=== PATIENT | female | born 1985 | race Hispanic/Latino ===

== ENCOUNTER 2022-01-29 08:54 | Emergency (ER) | payer SELFPAY ==
[~2022-01-29] VITALS: Ht 157.5 cm; Wt 68.9 kg
[2022-01-29] MEDS ORDERED: MAGNESIUM/ALUMINUM/SIMETHICONE 30 ML UDC PO ONE (09:15)
[2022-01-29] MEDS ORDERED: BELLADONNA ALK/PHENOBARBITAL 5 ML UDC PO ONE (09:15)
[2022-01-29] MEDS ORDERED: LIDOCAINE VISC 2% SOLN 15 ML UDC PO ONE (09:15)
[2022-01-29] MEDS ORDERED: ONDANSETRON HCL 4 MG ORAL DISINTEGRATING TAB PO ONE (09:15)
[2022-01-29] MEDS ORDERED: LIDOCAINE VISC 2% SOLN 15 ML UDC ONE (09:17)
[2022-01-29] MEDS ORDERED: ONDANSETRON HCL 4 MG ORAL DISINTEGRATING TAB ONE (09:17)
[2022-01-29] MEDS ORDERED: MAGNESIUM/ALUMINUM/SIMETHICONE 30 ML UDC ONE (09:18)
[2022-01-29] MEDS ORDERED: BELLADONNA ALK/PHENOBARBITAL 5 ML UDC ONE (09:18)
[2022-01-29] MEDS ORDERED: ONDANSETRON ODT4 MG PO (09:55)
== END 2022-01-29 10:16 | disposition home or self-care (01) ==
LOC: ER 09:06
DX: R11.2 Nausea with vomiting, unspecified (principal); R10.13 Epigastric pain; T40.2X5A Adverse effect of other opioids, initial encounter; I10 Essential (primary) hypertension
CPT/HCPCS: 99284; Q0162